=== PATIENT | male | born 1965 | race Caucasian/White ===

== ENCOUNTER 2017-04-22 11:05 | Inpatient (IN) | payer BC, OTHER ==
[2017-04-22] MEDS ORDERED: NORMAL SALINE 10 ML SYRINGE FLUSH IVP PRN ×2 (11:25→14:49)
[2017-04-22] MEDS: Sodium Chloride 0.9% 1,000 ML PRIMARY IV ONE ×2 (11:33→14:26)
[2017-04-22 11:44] LABS: BLOOD UREA NITROGEN 16 mg/dL (7-22); CALCIUM 9.8 mg/dL (8.7-10.7); EST GLOMERULAR FILTRATION > 60 (>60 ml/min/1.73m(2)); LIPASE 96 IU/L (23-300); SERUM ALBUMIN 4.3 g/dL (3.5-4.8)
[2017-04-22 11:51] LABS: HEMATOCRIT 46.2 % (42.0-52.0); MEAN CORPUSCULAR HEMOGLOBIN 29.6 PG (27-31); MEAN CORPUSCULAR HGB CONC 34.6 g/dL (33-37); MEAN CORPUSCULAR VOLUME 85.4 FL (80-90); MEAN PLATELET VOLUME 12.1 FL (7.4-12.2); RED BLOOD COUNT 5.41 10^6/uL (4.70-6.10)
[2017-04-22 11:52] LABS: BASOPHILS % (AUTO) 0.7 % (0-1); EOSINOPHILS # (AUTO) 0.03 10*3/UL; EOSINOPHILS % (AUTO) 0.2 % (0-8); LYMPHOCYTES # (AUTO) 1.45 10*3/uL; MONOCYTES # (AUTO) 1.72 10*3/UL (0.3-0.8); MONOCYTES % (AUTO) 12.2 % (5-15); NEUTROPHILS # (AUTO) 10.78 10*3/UL; NEUTROPHILS % (AUTO) 76.4 % (50-80); PLATELET MORPHOLOGY COMMENT NORMAL MORPHOLOGY (NORM); RBC MORPHOLOGY COMMENT NORMAL MORPHOLOGY (NORM); WBC MORPHOLOGY COMMENT NORMAL MORPHOLOGY (NORM)
[2017-04-22 12:19] LABS: BILIRUBIN,URINE NEGATIVE (NEG); CLARITY,URINE CLEAR (CLEAR); COLOR,URINE YELLOW; GLUCOSE, URINE (UA) NEGATIVE (NEG); NITRATE,URINE NEGATIVE (NEG); OCCULT BLOOD,URINE Trace-intact (NEG); PROTEIN,URINE NEGATIVE (NEG); UROBILINOGEN,URINE 0.2 EU/dL (0.2)
[2017-04-22 12:23] LABS: RBC,URINE 0-2 /hpf; URINE SAMPLE TYPE VOIDED SPECIMEN
--- NOTE | 2017-04-22 12:23 | DI ---
CT ABD W/CN AND PELVIS W/CN,04/22/2017 11:25 AM: Clinical History: Abdominal pain Previous Exam: None at this facility. Findings: Multiple helically acquired CT images are obtained through the abdomen and pelvis following the intra venous administration of 95 cc of Isovue-300, and demonstrate clear lung bases. The liver, spleen, pancreas and kidneys are unremarkable. There are advanced inflammatory changes of the right lower quadrant predominantly involving the anterior pararenal fascia. The appendix is also seen in this area, but appears to be within normal limits. There is a complex mass in the left adrenal gland measuring 2.9 cm in diameter. The patient is status post cholecystectomy. There is no significant lymphadenopathy. A few peripheral vascular calcifications are seen. Impression: 1. Inflammatory changes of the right peritoneal reflection anterior pararenal fascia and in the regio n of the appendix however, the appendix appears to be normal in size. This may represent cecal divert iculitis or enteritis. This could also represent an appendicitis which is early. Correlate with physi roselyn exam and white blood cell count.
[2017-04-22] MEDS ORDERED: Ertapenem Inj 1 GM in Sodium Chloride 0.9% 100 ML IV ONE (12:41)
[2017-04-22] MEDS ORDERED: diphenhydrAMINE 50 MG/1 ML VIAL IVP ONE (12:46)
[2017-04-22] MEDS ORDERED: MORPHINE SULFATE 4 MG/1 ML IVP ONE (13:12)
[2017-04-22] MEDS ORDERED: MORPHINE SULFATE 4 MG/1 ML IVP SCH (13:45)
[2017-04-22] MEDS ORDERED: ONDANSETRON 4 MG/2 ML VIAL IVP SCH (13:45)
--- NOTE | 2017-04-22 13:54 | EKG ---
[address] [address] Measurements Intervals [place] Rate: 70 P: [place]: 0 QRS: 67 QRSD: 93 T: -12 QT: 412 QTc: 432 Interpretive Statements SINUS RHYTHM WITH VENTRICULAR PREMATURE COMPLEXES AND VENTRICULAR BIGEMINEY NONSPECIFIC ST DEPRESSION No previous ECG available for comparison Electronically Signed On 04-22-17 15:34:46 MDT by Galo Ba [id number]
--- NOTE | 2017-04-22 14:19 | PDOC ---
History and Physical - History of Present Illness Date and Time of Service: 22 april 2017, 14:18 Chief Complaint: Right lower quadrant pain. Pain is been ongoing for greater than 48 hours. History of Present Illness: Patient with right lower quadrant abdominal pain that's been ongoing for over 48 hours. Patient has had complaints of headache. He denies any fever chills or sweats, nausea vomiting or diarrhea, no cough, no chest pain, no shortness of breath. Patient has been cutting hay for the last 2 or 3 days. Yesterday he stated he felt pretty rough and was unable to accomplish his normal amount of [place]. He presented this morning to the medical office building for evaluation and was directed to the emergency department here at [facility]. CT scan was performed which shows a normal size appendix. His white count is elevated to just over 14. Past Medical History Medical History: Past medical history includes coronary arterial disease, myocardial infarction, cardiac arrest, CVA 2, hyperlipidemia. Surgical History: Cholecystectomy, colonoscopy, angiography with coronary stent 2, vasectomy. 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 Medication / Allergies Home Medications: Home Medications Medication Instructions Recorded Confirmed Type Atorvastatin Calcium 40 mg PO DAILY tab 05/23/15 04/22/17 History Aspirin [Aspir 81] 81 mg PO DAILY tab 05/25/15 04/22/17 History Allergies/Adverse Reactions: Allergies Allergy/AdvReac Type Severity Reaction Status Date / Time No Known Allergies Allergy Verified 04/23/17 06:20 Review of Systems - Review of Systems All Systems: Reviewed & No Additional Complaints Except as Stated (I did a 12 point review of systems and it was negative except as per HPI) Exam - Vitals Vital Signs: Vital Signs Pulse Rate [Pulse Oximeter 47 Right] Respiratory Rate 18 Oxygen Flow Rate 98 Oxygen Delivery Method Room Air Height 5 ft 11 in Weight 148 lb 12.8 oz - General General Appearance: POSITIVE: No Acute Distress, Cooperative - Head Head Exam: POSITIVE: Normal Inspection, Normocephalic - Eye Eye Exam: POSITIVE: Normal Appearance, PERRL, EOMI, No Scleral Icterus - ENT ENT Exam: POSITIVE: Normal Exam, Normal External Ear Exam, Normal Oropharynx, Mucous Membranes Moist - Neck Neck Exam: POSITIVE: Normal Inspection, Full ROM, No Tenderness, No Lymphadenopathy, No Thyromegaly, JVP is not Raised - Respiratory Respiratory Exam: POSITIVE: Clear to Auscultation - Bilaterally, Breathing Non Labored - Cardiovascular Cardiovascular Exam: POSITIVE: No Murmur, No Clicks, No Gallops, No Rubs, Bradycardia - GI/Abdominal GI/Abdominal Exam: POSITIVE: Normal Bowel Sounds, Non Distended, Soft, No Masses , Rebound (Right lower quadrant), Positive for RUQ Pain, No Hepatomegaly, No Splenomegaly, No Organomegaly - Rectal Rectal Exam: POSITIVE: Deferred - External Exam: POSITIVE: Deferred Exam: POSITIVE: Deferred - Extremities Extremities Exam: POSITIVE: Normal Inspection, Full ROM, Normal Capillary Refill , No Edema Present, No Cyanosis Present, Clubbing Present, Negative Izaiah's sign , Dosalis Pedis Pulses - Stong & Regular - Back Back Exam: POSITIVE: Normal Inspection, Full ROM - Neurological Neurological Exam: POSITIVE: Alert, Oriented x 3, Reflexes Normal, Normal Gait, CN II-XII Intact, No Facial Droop, Speech Intact / Clear, Moves All Extremities Equally - Psychiatric Psychiatric Exam: POSITIVE: Normal Affect, Normal Mood - Integumentary Integumentary Exam: POSITIVE: Normal Color, Warm, Dry, Intact - Central Line Examination Central Line Present on Admission: No Results - Labs CBC and BMP: 04/23/17 06:39 04/23/17 06:39 - EKG Data Rate: Bradycardia EKG Shows Normal: Sinus Rhythm, QRS Complexes (Wide QRS complexes present) - Imaging Status: Image Reviewed by Me (abdominal CT scan shows normal appendix. there was some trace fluid and inflammatory changes in the right lower quadrant.) AFib Stroke Risk Screening - AFib Stroke Risk (CHADS-VASc) Atrial Fibrillation Ischemic Stroke Risk Factors: Vascular Disease (History of myocardial infarction), Stroke, TIA or TE (History of 2 CVAs) CHADS-VASc Score (A-Fib Stroke Risk Score): 3 CHADS-VASc Risk: High Risk Assessment and Plan - Patient Problems (1) Right lower quadrant abdominal pain Status: Acute Priority: High Diagnosis Date: 04/20/17 (2) Tobacco abuse Status: Acute (3) Hypercholesteremia Status: Chronic - Assessment / Plan Additional Assessment/Plan Details: admit patient for observation consult surgery, question if there is appendicitis-- it was recommended to treat as diverticulitis IV fluids IV antibiotics. check labs in AM repeat physical exam in AM - Time Time Spent With Patient: 15-25 Minutes
[2017-04-22] MEDS ORDERED: MORPHINE SULFATE 4 MG/1 ML IVP PRN (14:43)
[2017-04-22] MEDS ORDERED: Famotidine Inj 20 MG in Normal Saline Flush 10 ML IVP ONE (14:43)
[2017-04-22] MEDS ORDERED: ONDANSETRON 4 MG/2 ML VIAL IVP PRN (14:43)
[2017-04-22] MEDS: Sodium Chloride 0.9% 1,000 ML IV SCH ×2 (14:46→23:26)
[2017-04-22 17:35] LABS: BASOPHILS % (AUTO) 0.6 % (0-1); EOSINOPHILS % (AUTO) 0.7 % (0-8); HEMATOCRIT 42.2 % (42.0-52.0); HEMOGLOBIN 14.4 g/dL (14.0-18.0); LYMPHOCYTES # (AUTO) 2.04 10*3/uL; MEAN CORPUSCULAR HEMOGLOBIN 29.4 PG (27-31); MEAN CORPUSCULAR HGB CONC 34.1 g/dL (33-37); MEAN CORPUSCULAR VOLUME 86.3 FL (80-90); MEAN PLATELET VOLUME 11.5 FL (7.4-12.2); MONOCYTES % (AUTO) 12.7 % (5-15); NEUTROPHILS # (AUTO) 7.38 10*3/UL; NEUTROPHILS % (AUTO) 67.2 % (50-80); RED BLOOD COUNT 4.89 10^6/uL (4.70-6.10)
[2017-04-22 17:36] LABS: BASOPHILS # (AUTO) 0.07 10*3/UL; EOSINOPHILS # (AUTO) 0.08 10*3/UL; MONOCYTES # (AUTO) 1.39 10*3/UL (0.3-0.8); PLATELET MORPHOLOGY COMMENT NORMAL MORPHOLOGY (NORM); RBC MORPHOLOGY COMMENT NORMAL MORPHOLOGY (NORM); WBC MORPHOLOGY COMMENT NORMAL MORPHOLOGY (NORM)
--- NOTE | 2017-04-22 17:40 | CONSULT ---
Consult Note - Consult Consult Date: 04/22/17 Reason for Consult: PreOp Consulation : General Surgery Requesting Physician: Dr. Santos Burton Primary Care Provider: Paulie Griffiths MD - History of Present Illness History of Present Illness: The patient is a 52-year-old male I am asked to see for abdominal pain. He reports he noticed the pain on Friday. He felt bloated and the pain was in his central abdomen. This had slowly moved down to the lower abdomen. He slept okay on Friday night. Yesterday he was cutting hay and was pretty uncomfortable. When he got home and rested he felt better. He reports he ate a good dinner last night. He slept through the night and awoke with the pain. He presented to the open access clinic and was transferred to the emergency room. His white count was elevated at 14,000. There was no left shift. A CT scan shows the appendix to be normal in size at 5 mm. I reviewed the films with the radiologist. He has some inflammatory changes in the posterior peritoneum. There is no abscess or free fluid. There is a question of cecal diverticulitis. He got a gram of Invanz in the emergency room. Patient did have a colonoscopy approximately 2 years ago. A polyp was removed. Those records are not available to me. Patient also has a large left adrenal mass which will need to be evaluated. Patient denies nausea or vomiting. He's had a good appetite throughout. His bowel function has been normal. He denies fever or chills. He's never had a pain like this before. Review of Systems - Gastrointestinal Gastrointestinal / Abdominal: REPORTS: Abdominal Pain, See HPI Past Medical History Medical History: Past medical history includes coronary arterial disease, myocardial infarction, cardiac arrest, CVA 2, hyperlipidemia, subdural hematoma at the time of his cardiac arrest, sinus bradycardia. Surgical History: Cholecystectomy, colonoscopy, angiography with coronary stent 2, vasectomy. 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 Tobacco Use: Current Every Day Smoker Substance Use Type: None Medication / Allergies Home Medications: Home Medications Medication Instructions Recorded Confirmed Type Atorvastatin Calcium 1 tab PO DAILY tab 05/23/15 04/22/17 History Aspirin [Aspir 81] 81 mg PO DAILY tab 05/25/15 04/22/17 History Allergies/Adverse Reactions: Allergies Allergy/AdvReac Type Severity Reaction Status Date / Time No Known Allergies Allergy Verified 04/22/17 11:09 Exam - Vitals Vital Signs: Vital Signs Temperature 98.2 F Temperature Source Temporal Artery Scan Pulse Rate [Pulse Oximeter 44 Right] Pulse Rate 53 Respiratory Rate 18 Blood Pressure [Left Arm] 132/55 Blood Pressure 142/77 Pulse Ox 94 Oxygen Flow Rate 98 Oxygen Delivery Method Room Air Height 5 ft 11 in Weight 67.495 kg - General General Appearance: POSITIVE: No Acute Distress, Cooperative - Respiratory Respiratory Exam: POSITIVE: Clear to Auscultation - Bilaterally, Breathing Non Labored - Cardiovascular Cardiovascular Exam: POSITIVE: RRR, No Murmur, Bradycardia - GI/Abdominal GI/Abdominal Exam: POSITIVE: Normal Bowel Sounds, Non Distended, Guarding ( Voluntary, right lower quadrant.), No Masses Additional GI/Abdominal Exam Details: Right lower quadrant tenderness with guarding. No obvious rebound. No obvious masses. - Rectal Rectal Exam: POSITIVE: Deferred - Neurological Neurological Exam: POSITIVE: Alert, Oriented x 3 - Psychiatric Psychiatric Exam: POSITIVE: Normal Affect, Normal Mood - Integumentary Integumentary Exam: POSITIVE: Normal Color, Warm, Dry, Intact Results - Labs CBC and BMP: 04/22/17 11:32 04/22/17 11:32 - Imaging Status: Image Reviewed by Me (And discussed with the radiologist.), Report Reviewed by Me Assessment and Plan - Patient Problems (1) Right lower quadrant abdominal pain Current Visit: Yes Status: Acute Priority: High Diagnosis Date: 04/20/17 Comment: Atypical for appendicitis. Appendix is of normal size. I would expect him to have GI shut down and more systemic symptoms from appendicitis at 48 hours. Would also expect ruptured appendicitis. There is inflammatory changes behind the cecum and at the peritoneal reflection. These extend up to approximately the mid level of the right kidney. There is no evidence of abscess or free fluid. This could be consistent with right-sided diverticulitis. At this time he does not have an acute abdomen. We will treat him conservatively with pain medicines and antibiotics. We will reevaluate tomorrow with physical exam and CBC. If he improves continue to treat him conservatively. For failure to improve or signs of deterioration we will proceed with laparoscopy/laparotomy pending his clinical course. I have discussed this with the patient and his . Because of his medical conditions and his workload he would like to avoid surgery if possible. At this time it is reasonable. The hospitalist will get past records regarding his significant bradycardia. Patient and family tell me his last checkup with the tap out operator was okay without need for further intervention. We did discuss surgery if we need to go in that direction. We discussed the conservative treatment of appendicitis. (2) Mass of left adrenal gland Current Visit: Yes Status: Acute Priority: Medium Diagnosis Date: 04/22/17 Comment: He will need follow-up arranged with urology at the time of discharge.
[2017-04-22 17:44] LABS: BLOOD UREA NITROGEN 13 mg/dL (7-22); BUN/CREATININE RATIO 14.44 (6-20); CALCIUM 8.7 mg/dL (8.7-10.7); EST GLOMERULAR FILTRATION > 60 (>60 ml/min/1.73m(2)); SERUM ALBUMIN 3.4 g/dL (3.5-4.8)
[2017-04-22] MEDS ORDERED: ATORVASTATIN 40 MG TABLET PO SCH (21:00)
[2017-04-22] MEDS ORDERED: LACTATED RINGERS 1000 ML PRIMARY IV SCH (23:55)
[2017-04-23] MEDS: Lactated Ringers 1,000 ML PRIMARY IV SCH ×2 (04:56→12:57)
--- NOTE | 2017-04-23 06:45 | PDOC ---
Abdomen/Flank HPI - General Chief Complaint: Abdomen Pain Stated Complaint: ABDOMINAL PAIN STARTING FRIDAY Date Seen by Provider: 04/22/17 Time Seen by Provider: 11:07 Source: POSITIVE: Patient, Spouse Exam Limitations: POSITIVE: No limitations Nurse's Notes Reviewed & Considered: Yes - History of Present Illness Initial Comments: The patient is a 52-year-old male. He presents to the emergency room with complaints of right lower and right paraumbilical abdominal pain for the preceding 2 days. He states his pain is getting slowly worse. He states he's not had any nausea or vomiting or diarrhea. No melena, hematochezia, hematemesis, dysuria or hematuria. No fevers. He states he has not been hungry and he last ate about 12 hours ago. No history of abdominal surgery. Patient has had coronary artery stents 2 and he has a history of hypercholesterolemia. No fevers or chills. Body Location Affected: REPORTS: Abdomen Timing: REPORTS: Constant, Getting Worse Duration: >24 hours (Approximately 2 days) Severity: Moderate Quality: REPORTS: "Pain" Abdominal Pain Onset Location: REPORTS: RLQ, Periumbilical Abdominal Pain Radiation: REPORTS: No radiation Context: REPORTS: None Modifying Factors: improves with: Nothing Associated Symptoms: REPORTS: Denies symptoms Similar Symptoms Previously: No Recent Care Received: REPORTS: Denies Any Prior Injuries Related to Current Complaint?: No - Patient Home Medications Home Medications: Home Medications Atorvastatin Calcium 40 mg PO DAILY tab 05/23/15 Aspirin [Aspir 81] 81 mg PO DAILY tab 05/25/15 - Patient Allergies Allergies/Adverse Reactions: Allergies Allergy/AdvReac Type Severity Reaction Status Date / Time No Known Allergies Allergy Verified 04/23/17 06:20 Past Medical History - heen HEENT History: Denies History Cardiovascular History: Previous IN, Hyperlipidemia, Other (please comment) Additional Cardiovasular History: CARDIAC STENTS x2 Respiratory History: Denies History Gastrointestinal History: GERD Genitourinary History: Denies History Endocrine History: Denies History Musculoskeletal History: Denies History Prosthesis or Implant: Yes (CARDIAC STENTS x2) Neurological History: CVA Additional Neurological History: stroke x2 Blood Disorders: Denies History Psychiatric History: Denies History History of Sexually Transmitted Diseases: No Male Reproductive History: Denies History Cancer History: Denies History In Past Year Been Physically Harmed or Verbally Threatened: No History of MDRO: No History of Other Communicable Diseases: No Tobacco Use: Current Every Day Smoker Alcohol Use: None Substance Use Type: None Previous Surgical History: Yes Type / Date of Surgery: CARDIAC CATHETERIZATION WITH STENT PLACEMENT x2 Anesthesia Reactions: No Malignant Hyperthermia: No Family History of Malignant Hyperthermia: No Significant Family History: Diabetes Additional Family History: mother had diabetes. Past Medical History Reviewed: Reviewed - No Changes ROS - Limitations ROS Limitations: No Limitations Constitution: REPORTS: Denies Symptoms Cardiovascular: REPORTS: Denies Cardiac Symptoms Respiratory: REPORTS: Denies Resp Symptoms Neurological: REPORTS: Denies Neuro Symptoms Gastrointestinal: REPORTS: Abdominal Pain Endocrine: REPORTS: Denies Symptoms Musculoskeletal: REPORTS: Denies MS Symptoms Genitourinary: REPORTS: Denies Symptoms Eyes: REPORTS: Denies Symptoms ENT: REPORTS: Denies Symptoms Skin: REPORTS: Denies Skin Symptoms Lympathic: REPORTS: Denies Lympathic Symptoms Immunologic: POSITIVE: Denies Symptoms Psychiatric: POSITIVE: Denies Psych Symptoms Abdominal/Flank Pain PE - General Appearance General Appearance: POSITIVE: Alert, Cooperative, No Acute Distress, No Evidence of Trauma - HEENT HEENT: POSITIVE: Head Inspection Nml, Eyes Inspection Nml, Ears Inspection Nml, Nose Inspection Nml, Oral/Dental Inspect. Nml, Pharynx Inspect. Nml, PERRL, EOMI - Neck Neck: POSITIVE: Normal Inspection, No Apparent Injury - Respiratory Respiratory: POSITIVE: No Respiratory Distress, Breath Sounds Normal, Chest Non- Tender - Cardiovascular Cardiovascular: POSITIVE: Regular Rate and Rhythm, Heart Sounds Normal, Equal Pulses, Strong Pulses Peripheral Pulses: Radial (R): 2+, Radial (L): 2+ - Chest Chest: POSITIVE: Non Tender - Abdomen Abdomen: Soft: (All Quadrants), Normal Bowel Sounds: (All Quadrants), Denies Tenderness: (LLQ), (LUQ), (RUQ), No Splenomegaly: (All Quadrants), No Hepatomegaly: (All Quadrants), No Guarding: (All Quadrants), No Rebound: (All Quadrants), No Palpable Pulse: (All Quadrants), No Palpabale Mass: (All Quadrants), No Distention: (All Quadrants), No Rigidity: (All Quadrants), Tenderness Noted: (RLQ) Additional Abdominal Details: Abdominal examination shows bowel sounds to be present. Patient has pain on palpation right lower quadrant and right paraumbilical area. No masses, organomegaly or rebound. - Back Back: POSITIVE: Normal Inspection - Skin Skin: POSITIVE: Intact, Normal For Race, Warm, Dry, No Rash - Extremities Extremity: Non-Tender: (All Extremities), Normal ROM: (All Extremities), Normal Inspection: (All Extremities) - Neurological Neurological: POSITIVE: Affect Apporpriate, Oriented X3, mobile architect Normal As Tested, Motor Normal, Sensation Normal - Psychological Psychiatric: POSITIVE: Affect Appropriate, Mood Appropriate Images - Complete Complete: 1 - Area of pain Abdomen Progress - Results Reviewed by me Xrays/CTs/US Reviewed by me: Yes Discussed with Radiologist: Yes Radiology Findings: CT scan abdomen and pelvis with IV contrast read by radiologist as showing inflammatory changes in the right peritoneal flexion and pararenal fascia in the area of the appendix; appendix size normal. Lab Results Reviewed: Yes Lab Results:: Laboratory Results 04/22/17 04/22/17 Range/Units 11:32 12:16 WBC 14.11 H (4.8-10.8) 10^3/uL RBC 5.41 (4.70-6.10) 10^6/uL Hgb 16.0 (14.0-18.0) g/dL Hct 46.2 (42.0-52.0) % MCV 85.4 (80-90) FL MCH 29.6 (27-31) PG MCHC 34.6 (33-37) g/dL RDW Std Deviation 45.1 (39-50) fL RDW Coeff of Harley 14.6 H (11.5-14.5) % Plt Count 151 (140-350) 10*3/uL MPV 12.1 (7.4-12.2) FL Immature Gran % (Auto) 0.2 (0-5) % Neut % (Auto) 76.4 (50-80) % Lymph % (Auto) 10.3 (10-50) % [place] % (Auto) 12.2 (5-15) % Eos % (Auto) 0.2 (0-8) % Baso % (Auto) 0.7 (0-1) % Immature Gran # (Auto) 0.03 10*3/UL Neut # (Auto) 10.78 10*3/UL Lymph # (Auto) 1.45 10*3/uL [place] # (Auto) 1.72 H (0.3-0.8) 10*3/UL Eos # (Auto) 0.03 10*3/UL Baso # (Auto) 0.10 10*3/UL WBC Morphology Comment Normal morphology (NORM) Plt Morphology Comment Normal morphology (NORM) RBC Morph Comment Normal morphology (NORM) Sodium 139 (135-145) meq/L Potassium 4.0 (3.8-5.2) meq/L Chloride 105 (98-112) meq/L Carbon Dioxide 25 (23-33) meq/L Anion Gap 9 (5-20) BUN 16 (7-22) mg/dL Creatinine 1.0 (0.70-1.50) mg/dL Estimated GFR > 60 (>60 ml/min/1.73m(2)) BUN/Creatinine Ratio 16.00 (6-20) Glucose 96 (78-110) mg/dL Calculated Osmolality 288.0 (267-292) mOsm/kg Calcium 9.8 (8.7-10.7) mg/dL Total Bilirubin 0.7 (0.3-1.2) mg/dL AST 16 L (21-57) IU/L ALT 29 (21-72) IU/L Alkaline Phosphatase 89 (38-126) IU/L Total Protein 7.0 (6.1-8.0) g/dL Albumin 4.3 (3.5-4.8) g/dL Globulin 2.7 (2.50-4.10) g/dL Albumin/Globulin Ratio 1.50 (1.3-2.0) mg/g Amylase 69 (30-110) U/L Lipase 96 (23-300) IU/L Ur Collection Type Voided specimen Urine Color Yellow Urine Clarity Clear (CLEAR) Urine pH 6.0 (5.0-8.5) Ur Specific [place] 1.010 (1.005-1.030) Urine Protein Negative (NEG) mg/dl Urine Glucose (UA) Negative (NEG) mg/dL Urine Ketones Negative (NEG) Urine Occult Blood Trace-intact H (NEG) Urine Nitrate Negative (NEG) Urine Bilirubin Negative (NEG) Urine Urobilinogen 0.2 (0.2) EU/dL Ur Leukocyte Esterase Negative (NEG) Urine RBC 0-2 (NONE) /hpf Urine WBC None (NONE) Ur Squamous Epith Cells None (NONE) Ur Renal Epithelial Cell None (NONE) Urine Crystals None Urine Bacteria None (NONE) Urine Casts None (NONE) Urine Mucus Rare (NONE) Urine Trichomonas None (NONE) Urine Yeast None (NONE) Ur Culture Indicated? Culture not set - Patient's Progress Pain Medication Addressed: POSITIVE: Yes (Morphine sulfate) School/Work Release Addressed: POSITIVE: Not Applicable Re-examine Time: 12:30 Re-Examine Comment: Unchanged Status: POSITIVE: Unchanged, Re-Examined - Consult Consult (If Yes, Name of Consulting MD & Time Called): Yes (Dr. Miller, surgeon; Dr. Graham, hospitalist, [id number]) Consulting MD will see pt:: POSITIVE: [facility] [place] Admit Counseled: POSITIVE: Patient, Family, RE: Lab Results, RE: Radiology Results, RE : DX, RE: Need for F/U Patient Care Time - Estimated PCT Patient Care Time (In Minutes): 45 Vital Signs - VS Reviewed Vital Signs Reviewed: Yes Discharge Clinical Impression: Abdominal pain Discharge Disposition: Admit to Inpatient Condition: Stable Date Decision to Admit to Inpatient: 04/22/17 Time Decision to Admit to Inpatient: 12:40
[2017-04-23 07:10] LABS: BLOOD UREA NITROGEN 12 mg/dL (7-22); CALCIUM 8.5 mg/dL (8.7-10.7); EST GLOMERULAR FILTRATION > 60 (>60 ml/min/1.73m(2))
[2017-04-23 07:14] LABS: HEMATOCRIT 39.6 % (42.0-52.0); HEMOGLOBIN 13.5 g/dL (14.0-18.0); MEAN CORPUSCULAR VOLUME 85.9 FL (80-90); RED BLOOD COUNT 4.61 10^6/uL (4.70-6.10)
[2017-04-23 07:15] LABS: BASOPHILS # (AUTO) 0.05 10*3/UL; BASOPHILS % (AUTO) 0.5 % (0-1); EOSINOPHILS # (AUTO) 0.09 10*3/UL; EOSINOPHILS % (AUTO) 0.9 % (0-8); LYMPHOCYTES # (AUTO) 1.72 10*3/uL; MEAN CORPUSCULAR HEMOGLOBIN 29.3 PG (27-31); MEAN CORPUSCULAR HGB CONC 34.1 g/dL (33-37); MEAN PLATELET VOLUME 12.6 FL (7.4-12.2); MONOCYTES # (AUTO) 1.22 10*3/UL (0.3-0.8); MONOCYTES % (AUTO) 12.3 % (5-15); NEUTROPHILS # (AUTO) 6.84 10*3/UL; NEUTROPHILS % (AUTO) 68.8 % (50-80)
[2017-04-23 07:16] LABS: PLATELET MORPHOLOGY COMMENT NORMAL MORPHOLOGY (NORM); RBC MORPHOLOGY COMMENT NORMAL MORPHOLOGY (NORM); WBC MORPHOLOGY COMMENT NORMAL MORPHOLOGY (NORM)
[2017-04-23] MEDS ORDERED: ASPIRIN EC 81 MG TABLET PO SCH (09:00)
--- NOTE | 2017-04-23 09:59 | EKG ---
[address] [address] Measurements Intervals [place] Rate: 37 P: 35 [place]: 150 QRS: 60 QRSD: 108 T: 9 QT: 439 QTc: 353 Interpretive Statements SINUS BRADYCARDIA Compared to ECG 04/22/2017 13:48:06 Sinus rhythm no longer present Ventricular premature complex(es) no longer present ST (T wave) deviation no longer present Electronically Signed On 04-23-17 11:05:49 MDT by Kayode Washington MD [id number]
--- NOTE | 2017-04-23 10:51 | PDOC(PROG) ---
Date and Time of Service: 23 April 2017, 1000 hrs Interval History: Subjective: Patient states he feels much better this morning with decreased abdominal pain. Objective: Last pain medication provided at 2000 hrs. last night. White count has improved to 9.9. Repeat EKG shows a sinus bradycardia with a rate of 37 beats a minute. Abdominal exam shows tenderness in the right lower quadrant that has improved from yesterday with no guarding him on no rebound. Assessment: Right lower quadrant pain improved. Plan: Awaiting Dr. Miller's consultation today. Expecting for discharge later today and home on Levaquin and Flagyl. On Dr. Miller's advice this morning patient is being fed to test the brady. 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 Dixon, and will arrange follow-up for his sinus bradycardia. He should have follow-up within 2 weeks. Objective : Data - Labs CBC and BMP: 04/23/17 06:39 04/23/17 06:39 Labs - Last 24 Hours: Laboratory Results 04/22/17 04/23/17 Range/Units 17:25 06:39 WBC 10.98 H 9.94 (4.8-10.8) 10^3/uL RBC 4.89 4.61 L (4.70-6.10) 10^6/uL Hgb 14.4 13.5 L (14.0-18.0) g/dL Hct 42.2 39.6 L (42.0-52.0) % MCV 86.3 85.9 (80-90) FL MCH 29.4 29.3 (27-31) PG MCHC 34.1 34.1 (33-37) g/dL RDW Std Deviation 45.1 44.8 (39-50) fL RDW Coeff of [place] 14.6 H 14.5 (11.5-14.5) % Plt Count 134 L 128 L (140-350) 10*3/uL MPV 11.5 12.6 H (7.4-12.2) FL Immature Gran % (Auto) 0.2 0.2 (0-5) % Neut % (Auto) 67.2 68.8 (50-80) % Lymph % (Auto) 18.6 17.3 (10-50) % [place] % (Auto) 12.7 12.3 (5-15) % Eos % (Auto) 0.7 0.9 (0-8) % Baso % (Auto) 0.6 0.5 (0-1) % Immature Gran # (Auto) 0.02 0.02 10*3/UL Neut # (Auto) 7.38 6.84 10*3/UL Lymph # (Auto) 2.04 1.72 10*3/uL [place] # (Auto) 1.39 H 1.22 H (0.3-0.8) 10*3/UL Eos # (Auto) 0.08 0.09 10*3/UL Baso # (Auto) 0.07 0.05 10*3/UL WBC Morphology Comment Normal morphology Normal morphology (NORM) Plt Morphology Comment Normal morphology Normal morphology (NORM) RBC Morph Comment Normal morphology Normal morphology (NORM) PT 10.6 (9.7-11.4) secs INR 1.00 (0.00-5.90) N/A Sodium 141 136 (135-145) meq/L Potassium 3.7 L 3.9 (3.8-5.2) meq/L Chloride 108 108 (98-112) meq/L Carbon Dioxide 26 24 (23-33) meq/L Anion Gap 7 4 L (5-20) BUN 13 12 (7-22) mg/dL Creatinine 0.9 1.0 (0.70-1.50) mg/dL Estimated GFR > 60 > 60 (>60 ml/min/1.73m(2)) BUN/Creatinine Ratio 14.44 12.00 (6-20) Glucose 85 82 (78-110) mg/dL Calculated Osmolality 290.0 280.0 (267-292) mOsm/kg Calcium 8.7 8.5 L (8.7-10.7) mg/dL Magnesium 2.0 (1.6-2.4) mg/dL Total Bilirubin 0.6 (0.3-1.2) mg/dL AST 15 L (21-57) IU/L ALT 28 (21-72) IU/L Alkaline Phosphatase 68 (38-126) IU/L NT-Pro-B Natriuret Pep 131 H (0-125) PG/ML Total Protein 5.7 L (6.1-8.0) g/dL Albumin 3.4 L (3.5-4.8) g/dL Globulin 2.3 L (2.50-4.10) g/dL Albumin/Globulin Ratio 1.40 (1.3-2.0) mg/g
--- NOTE | 2017-04-23 12:38 | PDOC(PROG) ---
Date and Time of Service: 04/23/2017 12:30 PM Interval History: Feels much better than yesterday. Essentially no pain. Tolerated a regular diet today. No nausea or vomiting. No fever or chills. He is passing gas. No bowel movement. He feels well and wants to go home. Objective : Data - Labs CBC and BMP: 04/23/17 06:39 04/23/17 06:39 Labs - Last 24 Hours: Laboratory Results 04/22/17 04/23/17 Range/Units 17: 06:39 WBC 10.98 H 9.94 (4.8-10.8) 10^3/uL RBC 4.89 4.61 L (4.70-6.10) 10^6/uL Hgb 14.4 13.5 L (14.0-18.0) g/dL Hct 42.2 39.6 L (42.0-52.0) % MCV 86.3 85.9 (80-90) FL MCH 29.4 29.3 (27-31) PG MCHC 34.1 34.1 (33-37) g/dL RDW Std Deviation 45.1 44.8 (39-50) fL RDW Coeff of Harley 14.6 H 14.5 (11.5-14.5) % Plt Count 134 L 128 L (140-350) 10*3/uL MPV 11.5 12.6 H (7.4-12.2) FL Immature Gran % (Auto) 0.2 0.2 (0-5) % Neut % (Auto) 67.2 68.8 (50-80) % Lymph % (Auto) 18.6 17.3 (10-50) % [place] % (Auto) 12.7 12.3 (5-15) % Eos % (Auto) 0.7 0.9 (0-8) % Baso % (Auto) 0.6 0.5 (0-1) % Immature Gran # (Auto) 0.02 0.02 10*3/UL Neut # (Auto) 7.38 6.84 10*3/UL Lymph # (Auto) 2.04 1.72 10*3/uL [place] # (Auto) 1.39 H 1.22 H (0.3-0.8) 10*3/UL Eos # (Auto) 0.08 0.09 10*3/UL Baso # (Auto) 0.07 0.05 10*3/UL WBC Morphology Comment Normal morphology Normal morphology (NORM) Plt Morphology Comment Normal morphology Normal morphology (NORM) RBC Morph Comment Normal morphology Normal morphology (NORM) PT 10.6 (9.7-11.4) secs INR 1.00 (0.00-5.90) N/A Sodium 141 136 (135-145) meq/L Potassium 3.7 L 3.9 (3.8-5.2) meq/L Chloride 108 108 (98-112) meq/L Carbon Dioxide 26 24 (23-33) meq/L Anion Gap 7 4 L (5-20) BUN 13 12 (7-22) mg/dL Creatinine 0.9 1.0 (0.70-1.50) mg/dL Estimated GFR > 60 > 60 (>60 ml/min/1.73m(2)) BUN/Creatinine Ratio 14.44 12.00 (6-20) Glucose 85 82 (78-110) mg/dL Calculated Osmolality 290.0 280.0 (267-292) mOsm/kg Calcium 8.7 8.5 L (8.7-10.7) mg/dL Magnesium 2.0 (1.6-2.4) mg/dL Total Bilirubin 0.6 (0.3-1.2) mg/dL AST 15 L (21-57) IU/L ALT 28 (21-72) IU/L Alkaline Phosphatase 68 (38-126) IU/L NT-Pro-B Natriuret Pep 131 H (0-125) PG/ML Total Protein 5.7 L (6.1-8.0) g/dL Albumin 3.4 L (3.5-4.8) g/dL Globulin 2.3 L (2.50-4.10) g/dL Albumin/Globulin Ratio 1.40 (1.3-2.0) mg/g - Vital Signs Vital Signs and I&O: Vital Signs - Last Taken Temperature 97.5 F 04/23/17 09:08 Pulse Rate 61 04/23/17 04:36 Respiratory Rate 24 04/23/17 09:08 Blood Pressure 126/55 04/23/17 09:08 Pulse Ox 95 04/23/17 09:08 Intake and Output (24hr x 4 totals) 04/21/17 04/22/17 04/23/17 04/24/17 05:59 05:59 05:59 05:59 Intake Total 2419 200 Output Total 275 Balance 2144 200 Objective : Exam - General General Appearance: No Acute Distress, Cooperative - Respiratory Respiratory Exam: Clear to Auscultation - Bilaterally, Breathing Non Labored - Cardiovascular Cardiovascular Exam: No Murmur, Bradycardia - GI/Abdominal GI/Abdominal Exam: Normal Bowel Sounds, Non Distended, Soft Additional GI/Abdominal Exam Details: Mild right lower quadrant abdominal tenderness, significantly less than yesterday. No obvious mass. No voluntary guarding today. - Neurological Neurological Exam: Alert, Oriented x 3 - Psychiatric Psychiatric Exam: Normal Affect, Normal Mood Assessment and Plan - Patient Problems (1) Right lower quadrant abdominal pain Current Visit: Yes Status: Acute Priority: High Diagnosis Date: 04/20/17 Comment: Etiology unclear. Diverticulitis of the right colon versus appendicitis. Either way it is responding to conservative treatment. I think it's reasonable to discharge the patient home for outpatient follow-up. Spoke with Dr. Graham. He will discharge the patient on Levaquin and Flagyl with a few pain pills. Patient will follow-up to see me in 3 weeks' time. Consider follow-up CT scan at that time. Consider interval appendectomy pending his clinical course. I have told the patient to return to the hospital or call my office for increased abdominal pain, fever, chills, nausea, or vomiting or any signs of deterioration. Dr. 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 I think that's important before considering operative intervention. (2) Mass of left adrenal gland Current Visit: Yes Status: Acute Priority: Medium Diagnosis Date: 04/22/17 Comment: Needs urology consultation. Dr. Graham will arrange.
--- NOTE | 2017-04-23 12:51 | DCSUMMARY ---
Hospitalization Summary Admit Date: 04/22/17 Discharge Date: 04/23/17 Primary Diagnosis:: Right Lower quadrant pain Hospital Course: Patient was admitted, evaluated by general surgery. Decision was made for conservative management and reevaluation. Overnight the patient required only one dose of pain medication at approximately 2000 hrs. and is had no further pain medication and has had improvement of his pain. His white count did improve as well as his physical exam. He received 2 doses of IV antibiotics. He is being discharged home on Levaquin and Flagyl for 10 days and a prescription for [place] is also being provided. Diagnosis is right lower quadrant pain. Differential includes early appendicitis, diverticulitis, enteric adenitis. 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 Patient is able to ambulate without symptoms and his chronotropic response is appropriate. He was ambulated here in the hallway and his chronotropic response improved his heart rate into the 70s without symptoms. I have obtained a appointment with Dr. Dixon for May 01 at 940 hours. Incidental finding of left adrenal mass. He is scheduled to follow up with Dr. Jose Trejo with urology in [facility] on May 05 at 10 AM. Additional diagnoses include #1 right lower quadrant pain. #2 bradycardia. #3 left adrenal mass. He is scheduled to follow up with Dr. Mejia, in general surgery, in 3 weeks. He is scheduled to see , with cardiology, on 01 May. He is scheduled to see Dr. Jose Trejo with urology on May 05. Patient is being discharged home in improved condition. Exam - Vitals Vital Signs: Vital Signs Temperature 97.5 F Temperature Source Oral Pulse Rate [Pulse Oximeter 61 Right] Pulse Rate 53 Respiratory Rate 24 Blood Pressure [Left Arm] 126/55 Blood Pressure 142/77 Pulse Ox 95 Oxygen Flow Rate 98 Oxygen Delivery Method Room Air Height 5 ft 11 in Weight 151 lb 12.8 oz
[2017-04-23] MEDS ORDERED: Ertapenem Inj 1 GM in Sodium Chloride 0.9% 100 ML IV SCH ×4 (13:00)
[2017-04-23 13:27] VITALS: RESP 22; TEMP 97.8
== END 2017-04-23 13:39 | disposition home or self-care (01) | DRG 392 ==
LOC: ER 11:05 → MED/SURG 13:26
PROVIDERS: ADMIT Family Medicine; ATTEND Family Medicine
DX: R10.31 Right lower quadrant pain (principal); R00.1 Bradycardia, unspecified; E27.9 Disorder of adrenal gland, unspecified; Z72.0 Tobacco use; E78.00 Pure hypercholesterolemia, unspecified; I48.91 Unspecified atrial fibrillation
CPT/HCPCS: 36415; 74177; 80048; 80053; 81001; 81003; 82150; 83690; 83735; 83880; 85025; 85610; 93005; 93010; 94761; 96361; 96365; 96375; 99285; J1200; J1335; J2270; J7030; J7050; J7120

== ENCOUNTER → 2017-05-21 | Outpatient (CLI) | payer BC ==
--- NOTE | 2017-05-21 10:41 | DI ---
MRI ABDOMEN WITHOUT AND WITH IV CONTRAST, 05/21/2017 8:12 AM: Clinical History: Left adrenal mass. Previous Exam: None at this facility. Axial and coronal T2 and an axial T2 fat saturated sequence; coronal T1 fat sat pre-and post contrast with a postcontrast axial T1-weighted fat sat; T1 weighted axial in and out of phase. The liver is normal. The patient is status post cholecystectomy. The common bile duct measures 4-5 mm . The pancreas and the pancreatic duct and the spleen and right adrenal gland are normal. There is a left adrenal mass roughly 27 x 31 x 32 mm and has a slightly inhomogeneous texture. Following adminis tration of IV contrast, there is subtle contrast enhancement primarily along the periphery of the les ion. No adenopathy or ascites is present. Readin. There is a slightly inhomogeneous left adrenal mass that is irregularly shaped but measures appro ximately 27 x 31 x 32 mm. Following contrast, there is subtle enhancement noted primarily along the p eriphery of the lesion. 2. The remainder of the examination is normal.
[2017-05-23 06:56] LABS: DEHYDROEPIANDROSTERONE SULFATE 83.8 mcg/dL (35-179)
[2017-05-23 10:04] LABS: METANEPHRINE FREE <0.20 nmol/L (<0.50)
[2017-05-23 14:34] LABS: ALDOSTERONE 4.6 ng/dL (<=21)
== END ==
LOC: MRI 08:08
PROVIDERS: ATTEND Urology
DX: E27.9 Disorder of adrenal gland, unspecified (principal)
CPT/HCPCS: 36415; 74183; 82088; 82157; 82627; 83835